=== PATIENT | male | born 1930 | race Caucasian/White ===

== ENCOUNTER 2017-01-12 15:30 | Inpatient (IN) | payer MEDICARE, BC ==
[~2017-01-12] VITALS: Ht 172.7 cm; Wt 74.3 kg
[~2017-01-12 15:30] MED LIST: ABILIFY2 MG PO; ALEVE 220MG220 MG PO; ASPIRIN 81M81 MG/TA2 PO; CARDURA4 MG PO; COZAAR 25MG25 MG/TAB PO; DIFLUCAN 100MG100 MG PO; FLOMAX 0.40.4 MG/CAP PO; HYZAAR 25 MG-101 TAB PO; IPRATROPIUM BROM3 M1 IH; LASIX 40MG TABL40 MG PO; LOPRESSOR100 MG PO; MIRALAX PA17 GM/Dose PO; MUCUSRELF400T PO; MULTIPLE VITAMI1 CAP PO; OMEGA-3 FISH1200 MG PO; PERFOROMIS20 MCG/2 M IH; PLAVIX 75MG TAB75 MG PO; PRAVACHOL 40MG40 MG PO; PROSCAR 5MG5 MG PO; PULMICORT0.5 MG/2 M IH; RT ALBUTER2.5 MG/0.5 INH; SYNTHROID0.075 MG/T PO; TOPROL XL 25MG25 MG PO; TOPROL XL 50MG50 MG PO; TYLENOL 325MG325 MG PO; TYLENOL 500MG500 MG PO; ZOCOR 40MG40 MG PO; ZOLOFT 25MG25 MG PO
[2017-01-12 17:05] VITALS: BP 117/63; PULSE 96; TEMP 99.7
[2017-01-12 18:37] LABS: BASO # 0.1 (0.0-0.2); BASO % 0.4 % (0.0-2.0); EOS % 0.2 % (0-4.0); GRAN # 12.5 (1.4-6.5); GRAN % 59.4 % (42.2-75.2); HEMATOCRIT 40.9 % (42.0-52.0); HEMOGLOBIN 13.9 g/dl (13.5-18.0); LYMPH # 6.9 (1.2-3.4); MEAN CELL VOLUME 101 fl (80.0-100.0); MEAN CORPUSCULAR HEMOGLOBIN 34 pg (27.0-31.0); MEAN CORPUSCULAR HGB CONC 34 g/dl (33.0-37.0); MEAN PLATELET VOLUME 9.7 fl (7.4-10.4); MONO # 1.3 (0.1-0.6); MONO % 6.1 % (1.7-9.3); PLATELET COUNT 141 K/mm3 (130-400); RED BLOOD COUNT 4.07 M/mm3 (4.20-5.60); REDCELL DISTRIBUTION WIDTH-CV 13.3 % (11.5-14.5)
[2017-01-12 18:43] LABS: INR 1.1 (0.8-3.0); PROTHROMBIN TIME 12.7 SECONDS (9.7-12.8)
[2017-01-12 18:51] LABS: ADJUSTED CALCIUM 8.7 mg/dL (8.4-10.2); ALBUMIN 3.9 gm/dL (3.5-5.0); CALCIUM 8.6 mg/dL (8.4-10.2); CREATININE, serum 1.07 mg/dL (0.66-1.25); POTASSIUM 3.9 mmol/L (3.4-5.0); TOTAL PROTEIN 6.6 gm/dL (6.4-8.2)
[2017-01-12 19:16] LABS: PH 5 (5-8); SQUAMOUS EPITHELIAL None Seen /hpf; URINE APPEARANCE Clear; URINE BACTERIA None Seen /hpf; URINE BILIRUBIN Negative (NEGATIVE); URINE BLOOD 1+ (NEGATIVE); URINE COLOR Yellow; URINE GLUCOSE Negative (NEGATIVE); URINE KETONE Trace (NEGATIVE); URINE UROBILINOGEN Negative (NEGATIVE); URINE WBC 0-2 /hpf
[2017-01-12] MEDS ORDERED: GOOD NEIGH1200 MG/15 PO (19:18)
[2017-01-12 20:00] VITALS: BP 127/61; PULSE 111; TEMP 100.2
[2017-01-13] VITALS (16 sets, daily range): BP systolic 99–121; BP diastolic 46–67; PULSE 62–119; TEMP 07.8
[2017-01-13 19:57] LABS: ALLEN TEST YES; ALLENS TEST RESULT PASS; ARTERIAL BLD GAS O2 SATURATION 92.5 % (92-100); ARTERIAL BLD GAS TCO2 CT 29.2; ARTERIAL BLOOD GAS BASE EXCESS 2.4 (-2-2); ARTERIAL BLOOD GAS HCO3 27.8 meq/L (22-26); ARTERIAL BLOOD GAS PO2 64.5 mmHg (80-100); ARTERIAL BLOOD GAS PO2T 64.5 (80-100); ATS? YES; OXYHEMOGLOBIN 91.5 %
[2017-01-13 20:34] LABS: HEMOGLOBIN 12.5 g/dl (13.5-18.0); MEAN CELL VOLUME 101 fl (80.0-100.0); MEAN CORPUSCULAR HEMOGLOBIN 34 pg (27.0-31.0); MEAN CORPUSCULAR HGB CONC 34 g/dl (33.0-37.0); MEAN PLATELET VOLUME 9.7 fl (7.4-10.4); PLATELET COUNT 127 K/mm3 (130-400); RED BLOOD COUNT 3.67 M/mm3 (4.20-5.60); REDCELL DISTRIBUTION WIDTH-CV 13.5 % (11.5-14.5)
[2017-01-13 20:44] LABS: HEMATOCRIT 36.9 % (42.0-52.0)
[2017-01-13 20:46] LABS: ADD PATHOLOGY DIFF REVIEW NO; WHITE BLOOD COUNT 28.2 K/mm3 (4.8-10.8)
[2017-01-13 20:52] LABS: CALCIUM 8.1 mg/dL (8.4-10.2); CREATININE, serum 1.12 mg/dL (0.66-1.25); POTASSIUM 3.8 mmol/L (3.4-5.0)
[2017-01-13 21:06] LABS: TROPONIN-I 0.138 ng/mL (0.000-0.034)
[2017-01-13 21:14] LABS: BAND 2 % (0-10); EOSINOPHIL 1 % (0-4); METAMYELOCYTE 1 % (0-0); NEUTROPHILS 64 % (42.0-75.2); PLATELET ESTIMATE NORMAL (NORMAL); ROULEAUX 1+; TOTAL CELLS COUNTED 100
[2017-01-14] VITALS (8 sets, daily range): BP systolic 94–116; BP diastolic 52–90; PULSE 100–120; TEMP 97.4–98.7
[2017-01-14 04:37] LABS: HEMATOCRIT 38.4 % (42.0-52.0); HEMOGLOBIN 12.9 g/dl (13.5-18.0)
[2017-01-14 04:50] LABS: CALCIUM 8.2 mg/dL (8.4-10.2); CREATININE, serum 1.36 mg/dL (0.66-1.25)
[2017-01-15] VITALS (7 sets, daily range): BP systolic 95–130; BP diastolic 47–59; PULSE 102–125; TEMP 97.3–98.8
[2017-01-15 08:32] LABS: MEAN CELL VOLUME 103 fl (80.0-100.0); MEAN CORPUSCULAR HGB CONC 33 g/dl (33.0-37.0); MEAN PLATELET VOLUME 10.8 fl (7.4-10.4); PLATELET COUNT 130 K/mm3 (130-400); RED BLOOD COUNT 3.37 M/mm3 (4.20-5.60); REDCELL DISTRIBUTION WIDTH-CV 13.7 % (11.5-14.5)
[2017-01-15 08:38] LABS: HEMATOCRIT 34.7 % (42.0-52.0); HEMOGLOBIN 11.5 g/dl (13.5-18.0); MEAN CORPUSCULAR HEMOGLOBIN 34 pg (27.0-31.0); WHITE BLOOD COUNT 40.2 K/mm3 (4.8-10.8)
[2017-01-15 08:40] LABS: ADJUSTED CALCIUM 9.1 mg/dL (8.4-10.2); ALBUMIN 3.2 gm/dL (3.5-5.0); BILIRUBIN,TOTAL 1.2 mg/dL (0.0-1.0); CALCIUM 8.5 mg/dL (8.4-10.2); CREATININE, serum 1.3 mg/dL (0.66-1.25); POTASSIUM 3.5 mmol/L (3.4-5.0)
[2017-01-15 14:51] LABS: TROPONIN-I 0.629 ng/mL (0.000-0.034)
[2017-01-16 05:15] VITALS: BP 134/61; PULSE 120; TEMP 99.3
[2017-01-16 09:41] VITALS: BP 137/68; PULSE 122; TEMP 100
== END 2017-01-17 11:38 | disposition hospice, inpatient (51) | DRG 480 ==
LOC: SURG 15:30
PROVIDERS: Internal Medicine; Internal Medicine Cardiovascular Disease; Nurse Practitioner; Orthopaedic Surgery
PROC: 0QS606Z Reposition Right Upper Femur with Intramedullary Internal Fixation Device, Open Approach (ICD-10-PCS; principal; 2017-01-13 11:00)
DX: S72.141A Displaced intertrochanteric fracture of right femur, initial encounter for closed fracture (principal); J96.01 Acute respiratory failure with hypoxia; I21.4 Non-ST elevation (NSTEMI) myocardial infarction; N17.0 Acute kidney failure with tubular necrosis; I50.23 Acute on chronic systolic (congestive) heart failure; C91.10 Chronic lymphocytic leukemia of B-cell type not having achieved remission; J81.1 Chronic pulmonary edema; Z51.5 Encounter for palliative care; Z66 Do not resuscitate; W18.30XA Fall on same level, unspecified, initial encounter; I25.119 Atherosclerotic heart disease of native coronary artery with unspecified angina pectoris; G30.9 Alzheimer's disease, unspecified; F02.80 Dementia in other diseases classified elsewhere, unspecified severity, without behavioral disturbance, psychotic disturbance, mood disturbance, and anxiety; Z85.51 Personal history of malignant neoplasm of bladder; J44.9 Chronic obstructive pulmonary disease, unspecified; Z95.1 Presence of aortocoronary bypass graft; Z95.0 Presence of cardiac pacemaker; I11.0 Hypertensive heart disease with heart failure
CPT/HCPCS: 99223-AI; 99231-AI; 99233-AI; 99239; C1713; J0690; J1650; J1940; J2250; J2270; J2310; J2405; J2704; J2765; J2795; J3010